=== PATIENT | female | born 1975 | race Caucasian/White ===

== ENCOUNTER 2022-07-19 04:55 | Emergency (ER) | payer OTHER ==
[~2022-07-19] VITALS: Ht 152.4 cm; Wt 90.7 kg
[2022-07-19 05:02] VITALS: BP_SYST 157
--- NOTE | 2022-07-19 05:13 | NUR ---
PT HERE ACCOMPANIED BY HER C/P LOW BACK PAIN RADITES TO LLQ AREA. PT DENIES FALL/TRAUMA. DENIES N/V/D, DENIES DYSURIA. PMH:DENIES PT AAOX4, NO SOB NOTED AND NAD. PT ASSISTED TO RM , AMBULATED WITH STEADY GAIT. REPORT GIVEN TO TACO JARA
--- NOTE | 2022-07-19 06:06 | NUR ---
PATIENT BACK FROM CT SCAN WITH STULL HEWER VIA WHEELCHAIR.
[2022-07-19 06:07] LABS: BILIRUBIN,URINE NEGATIVE (NEGATIVE); BLOOD, URINE NEGATIVE (NEGATIVE); CLARITY/URINE CLEAR (CLEAR); COLOR,URINE YELLOW (YELLOW); GLUCOSE,URINE NEGATIVE (NEGATIVE); KETONES,URINE NEGATIVE (NEGATIVE); LEUKOCYTE ESTERASE ,URINE NEGATIVE (NEGATIVE); NITRITE, URINE NEGATIVE (NEGATIVE); PH,URINE 7.5 (5.0-8.0); PROTEIN URINE NEGATIVE (NEGATIVE); UROBILINOGEN,URINE 0.2 (0.2-1.0)
[2022-07-19 06:44] LABS: HEMATOCRIT 39.8 % (36-48); MEAN CORPUSCULAR VOLUME 89 fL (79.0-98.0); PLATELET COUNT (AUTO) 356 K/uL (130-430); RED BLOOD CELL COUNT(AUTO) 4.46 MIL/uL (4.2-6.2)
[2022-07-19 06:45] LABS: CALCIUM 8.8 mg/dL (8.4-11.0); CREATININE 0.8 mg/dL (0.55-1.30); POTASSIUM 4.1 mmol/L (3.5-5.1)
--- NOTE | 2022-07-19 07:11 | NUR ---
REPORT GIVEN TO TACO EDMONDSON.
--- NOTE | 2022-07-19 07:26 | NUR ---
RECEIVED PT FROM TACO CURRY. ASSUMED CARE.
[2022-07-19] MEDS ORDERED: HYDR-3917 PO (07:29)
[2022-07-19] MEDS ORDERED: IBUP-1969 PO (07:29)
[2022-07-19] MEDS ORDERED: KETOROLAC TROMETHAMINE 60 MG/2 ML VIAL IM ONE (07:30)
--- NOTE | 2022-07-19 08:10 | NUR ---
TORADOL IM GIVEN TO LEFT DELTOID FOR AB/PELVIS PAIN 03/31.
[2022-07-19 09:10] VITALS: BP_SYST 147
--- NOTE | 2022-07-19 09:11 | NUR ---
Patient given written and verbal discharge instructions and verbalizes understanding. ER MD discussed with patient the results and treatment provided. Patient in stable condition. ID arm band removed. Rx of NORCO AND IBUPROFEN given. Patient educated on pain management and to follow up with PMD. Opportunity for questions provided and answered. Medication side effect fact sheet provided.
[2022-07-19 10:10] LABS: BASOPHILS % (MANUAL) 0 % (0-2); EOSINOPHILS % (MANUAL) 0 % (0-7); LYMPHOCYTES % (MANUAL) 13 % (20-46); MONOCYTES % (MANUAL) 4 % (0-11)
[2022-07-19] MEDS ORDERED: FLUORESCEIN SODIUM 1 MG OPHTHALMIC STRIP OP ONE (10:30)
[2022-07-19] MEDS ORDERED: PROPARACAINE (OPTHANINE 0.5%) 15 ML DROPS OP ONE (10:30)
== END 2022-07-19 09:11 | disposition home or self-care (01) ==
LOC: SED 04:55
DX: R10.9 Unspecified abdominal pain (principal); Z79.899 Other long term (current) drug therapy
CPT/HCPCS: 99284; 74176; 85027; 80048; 85007; 36415; 76376; 81025; 96372; 81003; J1885